=== PATIENT | male | born 1965 ===

== ENCOUNTER 2016-06-17 14:19 | Emergency (ER) | payer BC, OTHER ==
[2016-06-17 14:41] VITALS: BP 137/82
[2016-06-17] MEDS ORDERED: Tetan/Diph/Pertus SYR(Tdap)* 0.5 ML SYR(BOOSTRIX) use SYR IM ONE (15:59)
--- NOTE | 2016-06-17 16:00 | ED ---
Laceration/Wound HPI - HPI Summary HPI Summary: 50M presents with left index finger laceration. He was using a butter knife and cut his finger. He is left handed. He does not know when his last tetanus was. He has full ROM of his finger. - History of Current Complaint Stated Complaint: FINGER LACERATION Time Seen by Provider: 06/17/16 15:40 - Allergy/Home Medications Allergies/Adverse Reactions: Allergies Allergy/AdvReac Type Severity Reaction Status Date / Time Wasp Venom Protein Allergy Anaphylatic Verified 06/17/16 14:41 Shock Home Medications: Home Medications Hydrochlorothiazide TAB* [Hydrodiuril TAB*] 06/17/16 [History] PMH/Surg Hx/FS Hx/Imm Hx Endocrine/Hematology History: Denies: Hx Anticoagulant Therapy Cardiovascular History: Reports: Hx Hypertension Infectious Disease History: No Infectious Disease History: Denies: Traveled Outside the [place] in Last 30 Days - Family History Known Family History: Positive: Cardiac Disease - Social History Alcohol Use: None Substance Use Type: Reports: None Smoking Status (MU): Former Smoker Review of Systems Negative: Fever Negative: Chest Pain Negative: Shortness Of Breath Positive: Other - left index finger laceration All Other Systems Reviewed And Are Negative: Yes Physical Exam Triage Information Reviewed: Yes Vital Signs On Initial Exam: Initial Vitals Temp Pulse Resp BP Pulse Ox 97.9 F 74 16 137/82 97 06/17/16 14:38 06/17/16 14:38 06/17/16 14:38 06/17/16 14:38 06/17/16 14:38 Vital Signs Reviewed: Yes Appearance: Positive: Well-Appearing Skin: Positive: Warm, Dry, Other - 2cm superfical flap like laceration of DIP of left index finger Head/Face: Positive: Normal Head/Face Inspection Eyes: Positive: Normal, Conjunctiva Clear Respiratory/Lung Sounds: Positive: Clear to Auscultation, Breath Sounds Present Cardiovascular: Positive: Normal, RRR Musculoskeletal: Positive: Strength/ROM Intact - of left index finger, Other - good pulses, capillary refill <2secs Procedures - Laceration/Wound Repair 1 Location: Other - left index finger Description: Irregular Length, Depth and Shape: 2cm superficial Irrigated w/ Saline (ccs): 50 Closure: Skin Adhesive, SteriStrips Diagnostics - Vital Signs Vital Signs Temp Pulse Resp BP Pulse Ox 06/17/16 14:38 97.9 F 74 16 137/82 97 - Laboratory Lab Statement: Any lab studies that have been ordered have been reviewed, and results considered in the medical decision making process. Laceration Repair Course/Dx - Course Course Of Treatment: 50M presents with laceration to left index finger today. gave tetanus as did not know when last tetanus. laceration did not separate much so discussed with patient and decided to glue the laceration. tiffany taped the area and told to leave until healed. patient understands and agrees with plan - Differential Dx Differental Diagnoses: Abrasion, Avulsion, Laceration - Clinical Impression Provider Diagnoses: Laceration of left index finger Discharge - Discharge Plan Condition: Good Disposition: HOME Patient Education Materials: Skin Adhesive Care (ED) Referrals: Raymond Steele MD [Primary Care Provider] - Additional Instructions: Glue will fall off on own, can take steristrip off in 5 days Avoid scrubbing area Keep fingers taped together for 5 days Return to ED if develop any signs of infection or any new or worsening symptoms
== END 2016-06-17 16:25 | disposition home or self-care (01) ==
LOC: UCEAST 14:19
DX: S61.211A Laceration without foreign body of left index finger without damage to nail, initial encounter (principal); W26.0XXA Contact with knife, initial encounter; Y93.9 Activity, unspecified; Y92.9 Unspecified place or not applicable; Z23 Encounter for immunization; I10 Essential (primary) hypertension; Z87.891 Personal history of nicotine dependence
CPT/HCPCS: 90471; 90715; 99201; G0463

== ENCOUNTER 2018-07-04 04:52 | Emergency (ER) | payer OTHER ==
[2018-07-04] MEDS ORDERED: Morphine 4 MG/ML VIAL (1 ml) 4 MG/ML VIAL IV ONE (05:12)
[2018-07-04] MEDS ORDERED: Tamsulosin CAP* 0.4 MG PO ONE (05:12)
--- NOTE | 2018-07-04 05:12 | ED ---
Upper Extremity Pain - HPI Summary HPI Summary: Pt is a 52 y/o male who presents to the ED c/o wrist pain. 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 Pt then began to have left wrist pain at 4:15. Pain is rated a 7/10 in severity and is made worse with movement. Pt also had numbness of his left third and fourth digits which resolved. He has taken Ibuprofen for his symptoms. - History of Current Complaint Chief Complaint: EDExtremityUpper Stated Complaint: LEFT WRIST INJURY PER PT Hx Obtained From: Patient Mechanism Of Injury: Other - holding device in same position Onset/Duration: Started Days Ago - 1, Still Present Timing: Constant Severity Currently: Moderate - 7/10 Pain Location: Wrist - L Aggravating Factor(s): Movement Associated Signs & Symptoms: Positive: Numbness/Tingling Related History: Occupational Injury - Allergies/Home Medications Allergies/Adverse Reactions: Allergies Allergy/AdvReac Type Severity Reaction Status Date / Time morphine Allergy Unknown Verified 07/04/18 04:59 Reaction Details wasp Allergy Anaphylatic Uncoded 07/04/18 05:01 Shock Home Medications: Home Medications Atorvastatin* [Lipitor*] 20 mg PO DAILY 07/04/18 [History Confirmed 07/04/18] Hydrochlorothiazide TAB* [Hydrodiuril TAB*] 25 mg PO DAILY 07/04/18 [History Confirmed 07/04/18] Metformin HCl 500 mg PO DAILY 07/04/18 [History Confirmed 07/04/18] PMH/Surg Hx/FS Hx/Imm Hx Endocrine/Hematology History: Denies: Hx Anticoagulant Therapy, Hx Diabetes Cardiovascular History: Reports: Hx Hypertension Denies: Hx Pacemaker/ICD Sensory History: Denies: Hx Hearing Aid Psychiatric History: Denies: Hx Panic Disorder - Surgical History Surgery Procedure, Year, and Place: [facility]G AGE 10 Infectious Disease History: No Infectious Disease History: Denies: Traveled Outside the [place] in Last 30 Days - Family History Known Family History: Positive: Cardiac Disease - Social History Alcohol Use: None Hx Substance Use: No Substance Use Type: Reports: None Hx Tobacco Use: Yes Smoking Status (MU): Former Smoker Review of Systems Positive: Arthralgia - L wrist Positive: Numbness - resolved - L hand All Other Systems Reviewed And Are Negative: Yes Physical Exam - Summary Physical Exam Summary: Appearance: well appearing, no pain distress Skin: warm, dry, reflects adequate perfusion Head/face: normal Eyes: EOMI, LEIGH ENT: mucous membranes moist Neck: supple, non-tender Respiratory: CTA, breath sounds present Cardiovascular: RRR, pulses symmetrical Abdomen: non-tender, soft Bowel Sounds: present Musculoskeletal: strength/ROM intact, tenderness to radial aspect of left volar wrist, no edema Neuro: normal, sensory motor intact, A&Ox3 Triage Information Reviewed: Yes Vital Signs On Initial Exam: Initial Vitals Temp Pulse Resp BP Pulse Ox 98.0 F 82 16 161/99 95 07/04/18 04:55 07/04/18 04:55 07/04/18 04:55 07/04/18 04:55 07/04/18 04:55 Vital Signs Reviewed: Yes Procedures - Splinting Left Upper Extremity Location: left wrist Splint: volar - cock-up Pre-Proc Neuro Vasc Exam: normal Post-Proc Neuro Vasc Exam: normal Diagnostics - Vital Signs Vital Signs Temp Pulse Resp BP Pulse Ox 07/04/18 04:55 98.0 F 82 16 161/99 95 - Laboratory Lab Statement: Any lab studies that have been ordered have been reviewed, and results considered in the medical decision making process. - Radiology Wrist XR Radiology Interpretation Completed By: ED Physician Summary of Radiographic Findings: No acute fracture. Pending official radiology report. Course/Dx - Course Course Of Treatment: Patient with minimal tenderness in the radial volar wrist of the nondominant left hand. X-rays are negative. No symptoms of carpal tunnel. His numbness that is now resolved was actually in an ulnar distribution. Splinted and treated with intramuscular dexamethasone. Continue Medrol Dosepak. Off work for 2 days. Follow up primary care physician. - Diagnoses Differential Diagnosis/HQI/PQRI: Positive: Other - Tendinitis, ruptured ganglion cyst, ulnar tunnel syndrome, carpal tunnel syndrome, wrist sprain Provider Diagnoses: Wrist sprain Discharge - Sign-Out/Discharge Documenting (check all that apply): Patient Departure - Discharge Patient Received Moderate/Deep Sedation with Procedure: No - Discharge Plan Condition: Good Disposition: HOME Prescriptions: methylPREDNISolone [Medrol] 4 mg PO DAILY #1 [id number] Patient Education Materials: Wrist Sprain (ED) Forms: *Work Release Referrals: Raymond Steele MD [Primary Care Provider] - Additional Instructions: Ice, splint for comfort. Off work or nonweightbearing in the left hand through the weekend. Continue ibuprofen and return if worse, new symptoms or other concerns. Follow up with her primary care physician. - Billing Disposition and Condition Condition: GOOD Disposition: Home - Attestation Statements Document Initiated by Frankoe: Yes Documenting Scribe: Jade Rosen Provider For Whom Scribe is Documenting (Include Credential): Maciej France MD Scribe Attestation: Jade Li, scribed for Maciej France MD on 07/04/18 at 0546. Scribe Documentation Reviewed: Yes Provider Attestation: The documentation as recorded by the Jade friedman accurately reflects the service I personally performed and the decisions made by Maciej green MD Status of Scribe Document: Viewed
[2018-07-04] MEDS ORDERED: Dexamethasone IV* 4 MG/ML 1 ML (4 MG) IM ONE (05:22)
[2018-07-04 05:46] VITALS: BP 0/0
== END 2018-07-04 05:45 | disposition home or self-care (01) ==
LOC: ED 04:52
DX: S63.502A Unspecified sprain of left wrist, initial encounter (principal); X50.1XXA Overexertion from prolonged static or awkward postures, initial encounter; Y99.0 Civilian activity done for income or pay; I10 Essential (primary) hypertension; Z88.5 Allergy status to narcotic agent; Z79.899 Other long term (current) drug therapy; Z79.84 Long term (current) use of oral hypoglycemic drugs; Z87.891 Personal history of nicotine dependence
CPT/HCPCS: 96372; 99282; J1100